=== PATIENT | male | born 1940 | race Caucasian/White ===

== ENCOUNTER 2018-08-13 22:22 | Inpatient (IN) | payer MEDICARE, MEDICAID ==
[~2018-08-13] VITALS: Ht 157.5 cm; Wt 87.5 kg
[~2018-08-13 22:22] MED LIST: AMLO10TA80 PO; BETH1POW2 MC; BETH25TA PO; BROM3DRO BOTHEYE; CARV25TA47 PO; CELL2 PO; CYAN100086 PO; CYCL100C8 PO; DOCU-138 PO; DORZ10DR8 EACHEYE; DORZ10DR9 EACHEYE; INSLIS SUBCUT; LEVO250T2 PO; LEVVL SQ; LINA5TAB PO; LOSA25TA12 PO; LOSA50TA20 PO; MAGN64TA9 PO; METO-539 PO; METO25TA6 PO; OCD MT; PANT40TA4 PO; PRED5TAB PO; TAMS0.4C31 PO; WARF3TAB28 PO; [UNRECOGNIZED DRUG - REMARK] SQ
[2018-08-13] MEDS ORDERED: GUAIFENESIN 200MG/10ML SUGAR FREE UDC PO PRN (23:45)
[2018-08-13] MEDS ORDERED: MAGNESIUM/ALUMINUM HYDROXIDE/SIMETHICONE 30ML UDC PO PRN (23:45)
[2018-08-13] MEDS ORDERED: ACETAMINOPHEN 325MG TABLET PO PRN (23:45)
[2018-08-13] MEDS ORDERED: IPRATROPIUM/ALBUTEROL 0.5-3(2.5)MG/3ML NEB INH PRN (23:45)
[2018-08-13] MEDS ORDERED: NITROGLYCERIN 0.4MG TABLET SL SL PRN (23:45)
[2018-08-13] MEDS ORDERED: DOCUSATE SODIUM 100MG CAPSULE PO PRN (23:45)
[2018-08-13] MEDS ORDERED: MORPHINE SULFATE 4 MG/ML CPJ (NOT FOR IM USE) IV PRN (23:45)
[2018-08-13] MEDS ORDERED: ONDANSETRON HCL 4MG/2ML INJ IV PRN (23:45)
[2018-08-14] MEDS ORDERED: ACETAMINOPHEN 325MG TABLET PO STA (00:07)
[2018-08-14] MEDS ORDERED: PIPERACILLIN/TAZ 3.375G PREMIX 50 ML IV ONE (00:15)
[2018-08-14] MEDS ORDERED: SODIUM CHLORIDE 0.9% 1000ML BAG (SEPSIS BOLUS) IV ONE (00:15)
[2018-08-14] MEDS ORDERED: VANCOMYCIN 1 G PREMIX 200 ML IV ONE (00:15)
[2018-08-14 00:19] LABS: HEMATOCRIT. 36.1 % (42.0-52.0); HEMOGLOBIN. 11.5 g/dL (14.0-18.0); MEAN CORPUSCULAR HEMOGLOBIN 27.6 pg (28.0-32.0); MEAN CORPUSCULAR VOLUME 86.5 fL (80.0-94.0); MEAN PLATELET VOLUME 8.6 fl (7.4-10.4); PLATELET 247 x1000/uL (130-400); RED BLOOD CELL COUNT 4.17 mill/uL (4.7-6.1)
[2018-08-14 00:26] LABS: CHLORIDE 107 mEq/L (98-107)
[2018-08-14 00:27] LABS: PROTHROMBIN TIME 10.1 sec (9.6-11.0)
[2018-08-14 00:29] LABS: CLARITY URINE CLEAR (CLEAR); COLOR URINE YELLOW (YELLOW); KETONES URINE TRACE (NEGATIVE); LEUKOCYTE ESTERASE URINE NEGATIVE (NEGATIVE); NITRITE URINE NEGATIVE (NEGATIVE); OCCULT BLOOD URINE 2+ (NEGATIVE); PROTEIN URINE 4+ (NEGATIVE); SPECIFIC GRAVITY URINE 1.022 (1.005-1.030); UROBILINOGEN URINE 0.2 E.U./dL (0.2-1.0)
[2018-08-14 00:33] LABS: LDL CHOLESTEROL 96 mg/dL (5-100)
[2018-08-14 00:35] LABS: HDL CHOLESTEROL 61 mg/dL (40-59); T4 FREE 0.96 ng/dL (0.76-1.46)
[2018-08-14 01:19] LABS: PLATELET ESTIMATE NORMAL
[2018-08-14 06:43] LABS: CREATINE KINASE MB FRACTION 1.3 ng/mL (0.5-3.6)
[2018-08-14 09:35] LABS: CHLORIDE 109 mEq/L (98-107)
[2018-08-14 09:42] LABS: HEMATOCRIT. 30.1 % (42.0-52.0); HEMOGLOBIN. 9.8 g/dL (14.0-18.0); MEAN CORPUSCULAR HEMOGLOBIN 27.9 pg (28.0-32.0); MEAN CORPUSCULAR VOLUME 86.2 fL (80.0-94.0); MEAN PLATELET VOLUME 8.5 fl (7.4-10.4); PLATELET 228 x1000/uL (130-400); RED BLOOD CELL COUNT 3.49 mill/uL (4.7-6.1); RED CELL DISTRIBUTION WIDTH 16.1 % (11.6-14.6)
[2018-08-14 10:32] LABS: PLATELET ESTIMATE NORMAL
[2018-08-14 12:00] VITALS: BP 143/59
[2018-08-14] MEDS ORDERED: TRAMADOL 50MG TABLET PO PRN (12:30)
[2018-08-14] MEDS ORDERED: DEXTROSE 50% WATER 50ML SYRINGE IV PRN (12:30)
[2018-08-14 13:04] VITALS: BP 143/59
[2018-08-14] MEDS: BLOOD SUGAR DIAGNOSTIC STRIP TEST SCH ×3 (13:23→21:52)
[2018-08-14] MEDS: ZINC SULFATE 220 MG ( 50 ) CAPSULE PO SCH (13:57)
[2018-08-14] MEDS: ASCORBIC ACID 500 MG TABLET PO SCH ×2 (13:58→22:09)
[2018-08-14] MEDS: FAMOTIDINE 20MG TABLET PO SCH (13:58)
[2018-08-14] MEDS: LEVOTHYROXINE SODIUM 50MCG TABLET PO SCH (13:58)
[2018-08-14] MEDS: MYCOPHENOLATE MOFETIL 250MG CAPSULE PO SCH ×2 (13:58→22:08)
[2018-08-14] MEDS: PREDNISONE 5MG TABLET PO SCH (13:58)
[2018-08-14] MEDS ORDERED: VANCOMYCIN 500 MG PREMIX 100 ML IV SCH (14:00)
[2018-08-14] MEDS: INSULIN LISPRO 100 UNITS/ML SUBCUT SCH ×3 (14:05→22:10)
[2018-08-14] MEDS: APIXABAN 2.5 MG TABLET PO SCH ×2 (14:14→19:14)
[2018-08-14] MEDS: SODIUM CHLORIDE 0.9% 1,000 ML IV SCH (14:24)
[2018-08-14] MEDS: METOPROLOL TARTRATE 25MG TABLET PO SCH ×2 (14:58→22:09)
[2018-08-14 15:51] LABS: CREATINE KINASE 195 IU/L (39-308)
[2018-08-14 15:52] LABS: CREATINE KINASE MB FRACTION 2.3 ng/mL (0.5-3.6)
[2018-08-14 17:09] VITALS: BP 159/69
[2018-08-14] MEDS: PIPERACILLIN/TAZ 2.25G PREMIX 50 ML IV SCH ×2 (17:52→22:09)
[2018-08-14] MEDS: CYCLOSPORINE 100MG CAPSULE PO SCH (19:14)
[2018-08-14 20:00] VITALS: BP 165/65
[2018-08-14] MEDS ORDERED: INSULIN GLARGINE UD 100 UNITS/ML SYR SUBCUT SCH (22:00)
[2018-08-14] MEDS: ZOLPIDEM TARTRATE 5MG TABLET PO PRN (22:08)
[2018-08-15] VITALS: BP 166/60
[2018-08-15] MEDS: SODIUM CHLORIDE 0.9% 1,000 ML IV SCH ×2 (03:46→17:24)
[2018-08-15 04:00] VITALS: BP 158/60
[2018-08-15] MEDS: CYCLOSPORINE 100MG CAPSULE PO SCH ×2 (05:33→17:19)
[2018-08-15] MEDS: APIXABAN 2.5 MG TABLET PO SCH ×2 (05:33→17:19)
[2018-08-15] MEDS: PIPERACILLIN/TAZ 2.25G PREMIX 50 ML IV SCH ×3 (05:33→23:12)
[2018-08-15 06:43] LABS: BASOPHILS % 0.2 % (0.0-2.0); EOSINOPHILS % 1.2 % (0.0-5.0); HEMATOCRIT. 30.5 % (42.0-52.0); HEMOGLOBIN. 9.9 g/dL (14.0-18.0); LYMPHOCYTES % 13.3 % (20.0-50.0); MEAN CORPUSCULAR HEMOGLOBIN 27.8 pg (28.0-32.0); MEAN CORPUSCULAR VOLUME 85.7 fL (80.0-94.0); MEAN PLATELET VOLUME 8.9 fl (7.4-10.4); MONOCYTES % 8.5 % (2.0-8.0); NEUTROPHILS % 76.8 % (40.0-76.0); PLATELET 210 x1000/uL (130-400); RED BLOOD CELL COUNT 3.56 mill/uL (4.7-6.1); RED CELL DISTRIBUTION WIDTH 15.8 % (11.6-14.6)
[2018-08-15] MEDS: BLOOD SUGAR DIAGNOSTIC STRIP TEST SCH ×4 (06:45→21:06)
[2018-08-15 08:00] VITALS: BP 167/40
[2018-08-15] MEDS: INSULIN LISPRO 100 UNITS/ML SUBCUT SCH ×4 (08:10→21:23)
[2018-08-15] MEDS: LEVOTHYROXINE SODIUM 50MCG TABLET PO SCH (08:26)
[2018-08-15] MEDS: ZINC SULFATE 220 MG ( 50 ) CAPSULE PO SCH (08:33)
[2018-08-15] MEDS: MYCOPHENOLATE MOFETIL 250MG CAPSULE PO SCH ×2 (08:33→21:05)
[2018-08-15] MEDS: PREDNISONE 5MG TABLET PO SCH (08:34)
[2018-08-15] MEDS: METOPROLOL TARTRATE 25MG TABLET PO SCH ×2 (08:34→21:05)
[2018-08-15] MEDS: FAMOTIDINE 20MG TABLET PO SCH (08:34)
[2018-08-15] MEDS: ASCORBIC ACID 500 MG TABLET PO SCH ×2 (08:34→21:06)
[2018-08-15 12:00] VITALS: BP 175/67
[2018-08-15] MEDS ORDERED: VANCOMYCIN 1 G PREMIX 200 ML IV SCH (12:30)
[2018-08-15] MEDS: AMLODIPINE 2.5MG TABLET PO SCH (15:03)
[2018-08-15] MEDS: CLONIDINE 0.1MG TABLET PO PRN (15:03)
[2018-08-15 16:00] VITALS: BP_SYST 163; BP_SYST 183; BP_DIAS 72
[2018-08-15 20:00] VITALS: BP 164/64
[2018-08-15] MEDS: INSULIN GLARGINE UD 100 UNITS/ML SYR SUBCUT SCH (23:12)
[2018-08-16] VITALS: BP 146/53
[2018-08-16 04:00] VITALS: BP 154/79
[2018-08-16] MEDS: PIPERACILLIN/TAZ 2.25G PREMIX 50 ML IV SCH ×3 (05:47→22:15)
[2018-08-16] MEDS: CYCLOSPORINE 100MG CAPSULE PO SCH ×3 (05:47→18:00)
[2018-08-16] MEDS: SODIUM CHLORIDE 0.9% 1,000 ML IV SCH (05:47)
[2018-08-16] MEDS: APIXABAN 2.5 MG TABLET PO SCH ×3 (05:47→18:00)
[2018-08-16 06:06] LABS: BASOPHILS % 0.3 % (0.0-2.0); EOSINOPHILS % 5.6 % (0.0-5.0); HEMATOCRIT. 31.8 % (42.0-52.0); HEMOGLOBIN. 10.1 g/dL (14.0-18.0); LYMPHOCYTES % 21.7 % (20.0-50.0); MEAN CORPUSCULAR HEMOGLOBIN 27.5 pg (28.0-32.0); MEAN CORPUSCULAR VOLUME 86.5 fL (80.0-94.0); MEAN PLATELET VOLUME 9.3 fl (7.4-10.4); MONOCYTES % 8.7 % (2.0-8.0); NEUTROPHILS % 63.7 % (40.0-76.0); PLATELET 224 x1000/uL (130-400); RED BLOOD CELL COUNT 3.68 mill/uL (4.7-6.1)
[2018-08-16 06:15] LABS: CHLORIDE 116 mEq/L (98-107)
[2018-08-16] MEDS: BLOOD SUGAR DIAGNOSTIC STRIP TEST SCH ×4 (07:40→21:00)
[2018-08-16 08:00] VITALS: BP 160/61
[2018-08-16] MEDS: INSULIN LISPRO 100 UNITS/ML SUBCUT SCH ×5 (08:10→22:15)
[2018-08-16] MEDS: LEVOTHYROXINE SODIUM 50MCG TABLET PO SCH (08:21)
[2018-08-16] MEDS: AMLODIPINE 2.5MG TABLET PO SCH (08:23)
[2018-08-16] MEDS: ASCORBIC ACID 500 MG TABLET PO SCH ×2 (08:23→21:25)
[2018-08-16] MEDS: MYCOPHENOLATE MOFETIL 250MG CAPSULE PO SCH ×2 (08:23→21:24)
[2018-08-16] MEDS: PREDNISONE 5MG TABLET PO SCH (08:23)
[2018-08-16] MEDS: FAMOTIDINE 20MG TABLET PO SCH (08:23)
[2018-08-16] MEDS: METOPROLOL TARTRATE 25MG TABLET PO SCH ×2 (08:23→21:25)
[2018-08-16] MEDS: ZINC SULFATE 220 MG ( 50 ) CAPSULE PO SCH (08:23)
[2018-08-16 11:53] VITALS: BP 172/63
[2018-08-16 16:00] VITALS: BP 168/64
[2018-08-16] MEDS ORDERED: VANCOMYCIN 1250MG in DEXTROSE 5% WATER 250ML IV NR (17:00)
[2018-08-16 20:00] VITALS: BP 158/78
[2018-08-16] MEDS: ZOLPIDEM TARTRATE 5MG TABLET PO PRN (21:24)
[2018-08-16] MEDS: INSULIN GLARGINE UD 100 UNITS/ML SYR SUBCUT SCH (22:15)
[2018-08-17 04:00] VITALS: BP 180/72
[2018-08-17] MEDS: APIXABAN 2.5 MG TABLET PO SCH ×2 (05:09→19:05)
[2018-08-17] MEDS: PIPERACILLIN/TAZ 2.25G PREMIX 50 ML IV SCH ×3 (05:09→21:09)
[2018-08-17] MEDS: CYCLOSPORINE 100MG CAPSULE PO SCH ×2 (05:09→19:05)
[2018-08-17] MEDS: LEVOTHYROXINE SODIUM 50MCG TABLET PO SCH (05:09)
[2018-08-17] MEDS: CLONIDINE 0.1MG TABLET PO PRN (05:09)
[2018-08-17] MEDS: BLOOD SUGAR DIAGNOSTIC STRIP TEST SCH ×4 (06:14→21:11)
[2018-08-17 07:33] LABS: BASOPHILS % 0.2 % (0.0-2.0); EOSINOPHILS % 5.4 % (0.0-5.0); HEMATOCRIT. 32.5 % (42.0-52.0); HEMOGLOBIN. 10.5 g/dL (14.0-18.0); MEAN CORPUSCULAR HEMOGLOBIN 27.5 pg (28.0-32.0); MEAN CORPUSCULAR VOLUME 84.8 fL (80.0-94.0); MEAN PLATELET VOLUME 8.8 fl (7.4-10.4); MONOCYTES % 7.7 % (2.0-8.0); NEUTROPHILS % 66.7 % (40.0-76.0); PLATELET 278 x1000/uL (130-400); RED BLOOD CELL COUNT 3.83 mill/uL (4.7-6.1); RED CELL DISTRIBUTION WIDTH 15.5 % (11.6-14.6)
[2018-08-17 08:00] VITALS: BP 163/64
[2018-08-17] MEDS ORDERED: POTASSIUM CHLORIDE 20MEQ TABLET SR PO NR (09:30)
[2018-08-17] MEDS: INSULIN LISPRO 100 UNITS/ML SUBCUT SCH ×4 (09:58→21:00)
[2018-08-17] MEDS: MYCOPHENOLATE MOFETIL 250MG CAPSULE PO SCH ×2 (09:59→21:11)
[2018-08-17] MEDS: PREDNISONE 5MG TABLET PO SCH (09:59)
[2018-08-17] MEDS: ASCORBIC ACID 500 MG TABLET PO SCH ×2 (10:00→21:10)
[2018-08-17] MEDS: METOPROLOL TARTRATE 25MG TABLET PO SCH ×2 (10:00→21:10)
[2018-08-17] MEDS: ZINC SULFATE 220 MG ( 50 ) CAPSULE PO SCH (10:00)
[2018-08-17] MEDS: AMLODIPINE 2.5MG TABLET PO SCH (10:01)
[2018-08-17] MEDS: FAMOTIDINE 20MG TABLET PO SCH (10:07)
[2018-08-17 12:00] VITALS: BP 167/62
[2018-08-17] MEDS ORDERED: FUROSEMIDE 20MG/2ML VIAL IVP SCH (12:45)
[2018-08-17 16:00] VITALS: BP 153/91
[2018-08-17 20:00] VITALS: BP 168/75
[2018-08-17] MEDS: INSULIN GLARGINE UD 100 UNITS/ML SYR SUBCUT SCH (21:10)
[2018-08-17] MEDS: ZOLPIDEM TARTRATE 5MG TABLET PO PRN (21:10)
[2018-08-18] VITALS: BP 179/56
[2018-08-18 04:00] VITALS: BP 174/68
[2018-08-18] MEDS: PIPERACILLIN/TAZ 2.25G PREMIX 50 ML IV SCH ×3 (05:28→22:37)
[2018-08-18] MEDS: CYCLOSPORINE 100MG CAPSULE PO SCH ×2 (05:28→18:00)
[2018-08-18] MEDS: LEVOTHYROXINE SODIUM 50MCG TABLET PO SCH (05:29)
[2018-08-18] MEDS: CLONIDINE 0.1MG TABLET PO PRN (05:29)
[2018-08-18] MEDS: APIXABAN 2.5 MG TABLET PO SCH ×2 (05:29→20:03)
[2018-08-18] MEDS: BLOOD SUGAR DIAGNOSTIC STRIP TEST SCH ×4 (05:48→21:07)
[2018-08-18 08:00] VITALS: BP 172/55
[2018-08-18] MEDS: INSULIN LISPRO 100 UNITS/ML SUBCUT SCH ×4 (08:10→21:17)
[2018-08-18 09:14] LABS: BASOPHILS % 1.5 % (0.0-2.0); EOSINOPHILS % 4.4 % (0.0-5.0); HEMATOCRIT. 32.6 % (42.0-52.0); HEMOGLOBIN. 10.5 g/dL (14.0-18.0); LYMPHOCYTES % 32.8 % (20.0-50.0); MEAN CORPUSCULAR HEMOGLOBIN 27.8 pg (28.0-32.0); MEAN CORPUSCULAR VOLUME 85.8 fL (80.0-94.0); MEAN PLATELET VOLUME 8.9 fl (7.4-10.4); MONOCYTES % 7.8 % (2.0-8.0); NEUTROPHILS % 53.5 % (40.0-76.0); PLATELET 302 x1000/uL (130-400); RED CELL DISTRIBUTION WIDTH 15.5 % (11.6-14.6)
[2018-08-18] MEDS: MYCOPHENOLATE MOFETIL 250MG CAPSULE PO SCH ×2 (09:19→21:06)
[2018-08-18] MEDS: ZINC SULFATE 220 MG ( 50 ) CAPSULE PO SCH (09:19)
[2018-08-18] MEDS: FAMOTIDINE 20MG TABLET PO SCH (09:19)
[2018-08-18] MEDS: ASCORBIC ACID 500 MG TABLET PO SCH ×2 (09:19→21:07)
[2018-08-18] MEDS: PREDNISONE 5MG TABLET PO SCH (09:19)
[2018-08-18] MEDS: AMLODIPINE 2.5MG TABLET PO SCH (09:20)
[2018-08-18] MEDS: METOPROLOL TARTRATE 25MG TABLET PO SCH ×2 (09:20→21:07)
[2018-08-18 12:00] VITALS: BP 157/46
[2018-08-18] MEDS ORDERED: VANCOMYCIN 1250MG in DEXTROSE 5% WATER 250ML IV NR (14:00)
[2018-08-18 16:00] VITALS: BP 138/79
[2018-08-18 20:00] VITALS: BP 156/66
[2018-08-18] MEDS: INSULIN GLARGINE UD 100 UNITS/ML SYR SUBCUT SCH (21:18)
[2018-08-18] MEDS: ZOLPIDEM TARTRATE 5MG TABLET PO PRN (22:41)
[2018-08-19] VITALS: BP 177/76
[2018-08-19 04:00] VITALS: BP 135/80
[2018-08-19] MEDS: APIXABAN 2.5 MG TABLET PO SCH ×2 (05:26→19:00)
[2018-08-19] MEDS: CYCLOSPORINE 100MG CAPSULE PO SCH ×2 (05:26→19:00)
[2018-08-19] MEDS: PIPERACILLIN/TAZ 2.25G PREMIX 50 ML IV SCH ×3 (05:27→22:00)
[2018-08-19 08:00] VITALS: BP 161/65
[2018-08-19] MEDS: BLOOD SUGAR DIAGNOSTIC STRIP TEST SCH ×4 (08:06→21:31)
[2018-08-19] MEDS: INSULIN LISPRO 100 UNITS/ML SUBCUT SCH ×4 (08:06→21:25)
[2018-08-19] MEDS: METOPROLOL TARTRATE 25MG TABLET PO SCH ×2 (09:00→21:23)
[2018-08-19] MEDS: LEVOTHYROXINE SODIUM 75MCG TABLET PO SCH (10:03)
[2018-08-19] MEDS: AMLODIPINE 2.5MG TABLET PO SCH (10:03)
[2018-08-19] MEDS: ZINC SULFATE 220 MG ( 50 ) CAPSULE PO SCH (10:03)
[2018-08-19] MEDS: ASCORBIC ACID 500 MG TABLET PO SCH ×2 (10:04→21:23)
[2018-08-19] MEDS: PREDNISONE 5MG TABLET PO SCH (10:04)
[2018-08-19] MEDS: MYCOPHENOLATE MOFETIL 250MG CAPSULE PO SCH ×2 (10:04→21:23)
[2018-08-19] MEDS: FAMOTIDINE 20MG TABLET PO SCH (10:04)
[2018-08-19 12:00] VITALS: BP 130/69
[2018-08-19 13:07] LABS: CYCLOSPORINE 104 ng/mL (100-400)
[2018-08-19 16:00] VITALS: BP 175/55
[2018-08-19 20:00] VITALS: BP 157/73
[2018-08-19] MEDS: INSULIN GLARGINE UD 100 UNITS/ML SYR SUBCUT SCH (21:28)
[2018-08-20] VITALS: BP 169/73
[2018-08-20 04:00] VITALS: BP 192/74
[2018-08-20] MEDS: PIPERACILLIN/TAZ 2.25G PREMIX 50 ML IV SCH (06:00)
[2018-08-20] MEDS: APIXABAN 2.5 MG TABLET PO SCH (06:06)
[2018-08-20] MEDS: CYCLOSPORINE 100MG CAPSULE PO SCH (06:06)
[2018-08-20] MEDS: BLOOD SUGAR DIAGNOSTIC STRIP TEST SCH (07:03)
[2018-08-20 08:30] VITALS: BP 175/76
[2018-08-20] MEDS: PREDNISONE 5MG TABLET PO SCH (08:54)
[2018-08-20] MEDS: MYCOPHENOLATE MOFETIL 250MG CAPSULE PO SCH (08:54)
[2018-08-20] MEDS: LEVOTHYROXINE SODIUM 75MCG TABLET PO SCH (08:54)
[2018-08-20] MEDS: ASCORBIC ACID 500 MG TABLET PO SCH (08:54)
[2018-08-20] MEDS: FAMOTIDINE 20MG TABLET PO SCH (08:54)
[2018-08-20] MEDS: ZINC SULFATE 220 MG ( 50 ) CAPSULE PO SCH (08:55)
[2018-08-20] MEDS: METOPROLOL TARTRATE 25MG TABLET PO SCH (08:55)
[2018-08-20] MEDS: AMLODIPINE 2.5MG TABLET PO SCH (08:56)
[2018-08-20] MEDS: INSULIN LISPRO 100 UNITS/ML SUBCUT SCH (09:00)
[2018-08-20] MEDS ORDERED: VANCOMYCIN 1250MG in DEXTROSE 5% WATER 250ML IV SCH (12:00)
[2018-08-20 12:01] VITALS: BP 173/60
== END 2018-08-20 14:27 | DRG 871 ==
LOC: ER 22:22 → SUPCPDRO 22:43 → 7WST 08-14 01:32 → EDBEDREQSVC 08-14 01:48 → EDBEDREQTM 08-14 01:48 → EDBEDREQ 08-14 01:48 → ENRESERV 08-14 10:04
PROVIDERS: ADMIT Internal Medicine; ATTEND Internal Medicine
DX: A41.9 Sepsis, unspecified organism (principal); N17.0 Acute kidney failure with tubular necrosis; E43 Unspecified severe protein-calorie malnutrition; N39.0 Urinary tract infection, site not specified; T86.11 Kidney transplant rejection; D63.8 Anemia in other chronic diseases classified elsewhere; E83.51 Hypocalcemia; E03.9 Hypothyroidism, unspecified; N18.3 Chronic kidney disease, stage 3 (moderate); N31.9 Neuromuscular dysfunction of bladder, unspecified; R33.8 Other retention of urine; E11.51 Type 2 diabetes mellitus with diabetic peripheral angiopathy without gangrene; E11.65 Type 2 diabetes mellitus with hyperglycemia; E78.00 Pure hypercholesterolemia, unspecified; E78.5 Hyperlipidemia, unspecified; I10 Essential (primary) hypertension; Y83.0 Surgical operation with transplant of whole organ as the cause of abnormal reaction of the patient, or of later complication, without mention of misadventure at the time of the procedure; I25.10 Atherosclerotic heart disease of native coronary artery without angina pectoris; K21.9 Gastro-esophageal reflux disease without esophagitis; E87.6 Hypokalemia; M19.90 Unspecified osteoarthritis, unspecified site; N40.1 Benign prostatic hyperplasia with lower urinary tract symptoms; Z79.4 Long term (current) use of insulin; Z79.899 Other long term (current) drug therapy; Z86.73 Personal history of transient ischemic attack (TIA), and cerebral infarction without residual deficits; Z89.511 Acquired absence of right leg below knee; Z89.512 Acquired absence of left leg below knee; Z90.5 Acquired absence of kidney; Y92.89 Other specified places as the place of occurrence of the external cause; Z88.8 Allergy status to other drugs, medicaments and biological substances; Z90.49 Acquired absence of other specified parts of digestive tract; Z68.35 Body mass index [BMI] 35.0-35.9, adult
CPT/HCPCS: 36415; 71045; 76770; 80048; 80061; 80158; 80202; 82550; 82553; 82962; 83036; 83605; 83735; 84100; 84145; 84439; 84443; 84484; 84550; 93005; 93970; 96365; 96366; 96368; 99291; J1815; J1940; J2270; J2543; J3370; J7030; J7050; J7060; J7502; J7512; J7517